=== PATIENT | female | born 1990 | race Caucasian/White ===

== ENCOUNTER 2020-06-07 21:47 | Observation (INO) ==
--- OUTSIDE RECORDS SUMMARY | 2020-06-07 21:50 | External Medical Summary | Continuity of Care Document ---
:1990 Author Name Apollo Martínez Address Unavailable Unavailable , Care Team Providers Name Role Phone OB [email or web address] Unavailable [email or web address] [email or web address], NO Unavailable Unavailable Problems Active medical history not documented Allergies and Adverse Reactions Allergy history not documented Medications Medications not documented Procedures Procedures not documented Immunizations Immunizations not documented Plan of Treatment Planned Observations Planned Goals not documented Results No Known Results Results not documented Encounters Appointment; OB SC1, Nursing Station 08-Nov-2017 8:45 Encounter Diagnosis: Problem not documented
--- OUTSIDE RECORDS SUMMARY | 2020-06-07 21:50 | External Medical Summary | Continuity of Care Document ---
:1990 Author Name Apollo Martínez Address Unavailable Unavailable , Care Team Providers Name Role Phone OB [email or web address] Unavailable [email or web address] PCP, NO Unavailable Unavailable Problems Active medical [...]
[2020-06-07] MEDS ORDERED: ACETAMINOPHEN 1,000 MG/100 ML VIAL IV STA (22:26)
[2020-06-07] MEDS ORDERED: ONDANSETRON INJ 2 MG/ML 2 ML VIAL IV STA (22:26)
[2020-06-07] MEDS ORDERED: MoRPHine SULFATE 10 MG/ML CARP/VIAL IV STA (22:26)
[2020-06-07] MEDS ORDERED: SODIUM CHLORIDE 0.9% 1000ML 1,000 ML IV SCH (22:30)
[2020-06-07 23:27] LABS: Basophils # (auto) 0.03 K/uL (0-0.2); Basophils % (auto) 0.2 %; Eosinophils # (auto) 0.18 K/uL (0-0.5); Eosinophils % (auto) 1.3 %; Hematocrit (blood only) 43.6 % (37-47); Hemoglobin 14.8 g/dL (12.0-16.0); Immature Granulocytes # (auto) 0.03 K/uL (0.00-0.02); Immature Granulocytes % (auto) 0.2 %; Lymphocytes # (auto) 2.01 K/uL (1.2-3.4); Mean Corpuscular Hemoglobin 27.7 pg (25-34); Mean Corpuscular Hgb Conc 33.9 g/dL (32-36); Mean Corpuscular Volume 81.5 fL (80-100); Mean Platelet Volume 11.6 fL (7.4-10.4); Monocytes # (auto) 1.04 K/uL (0.11-0.59); Monocytes % (auto) 7.8 %; Neutrophils % (auto) 75.5 %; Platelet Count 298 K/uL (130-400); RDW Coefficient of Variation 12.9 % (11.5-14.5); RDW Standard Deviation 38.4 fL (36.4-46.3); Red Blood Count 5.35 M/uL (4.2-5.4); White Blood Count 13.39 K/uL (4.8-10.8)
[2020-06-07 23:41] LABS: Appearance Urine Cloudy (Clear); Bacteria Urine Automated Negative (Negative); Bilirubin Urine Negative (Negative); Blood Urine Negative (Negative); Color Urine Yellow; Epithelial Cell Urine Auto >30 /lpf (0-5); Glucose Urine UA Negative (Negative); Ketones Urine Negative (Negative); Leukocyte Esterase Urine Negative (Negative); Nitrite Urine Negative (Negative); Protein Urine Negative (Negative); RBC Urine Automated 0-4 /hpf (0-4); Urobilinogen Urine Negative (Negative)
[2020-06-07 23:55] LABS: Albumin Level 4.1 gm/dl (3.4-5.0); BUN Creatinine Ratio 10.1 (10-20); Calcium 9.8 mg/dl (8.5-10.1); Creatinine Clr Calc Pharmacy 115.8 ml/min; Est GFR (African American) 118.9; Est GFR (Non-African American) 102.6; Potassium 3.7 mmol/L (3.5-5.1)
[2020-06-07 23:58] LABS: Albumin Globulin Ratio 1.1 (0.9-2); Bilirubin,Total 0.4 mg/dl (0.2-1); Globulin 3.8 gm/dl (2.5-4.0); Total Protein 7.9 gm/dl (6.4-8.2)
--- NOTE | 2020-06-08 02:04 | History & Physical Report ---
Date of Service June 08, 2020 Assessment & Plan (1) Appendicitis: This patient by history, physical examination, laboratory data and CT scan findings of which I reviewed the report as well as the images is consistent with acute appendicitis. We discussed the options of laparoscopic appendectomy versus antibiotics. She has chosen appendectomy. I explained the laparoscopic procedure and the possible need to convert to an open procedure. I explained the possible complications associated with the procedures and answered her questions. She signed a consent form. Present on Admission?: Yes History of Present Illness Chief Complaint: Right lower quadrant abdominal pain Primary Care Provider: Rafa Jackson Is a 29-year-old female who presented to the emergency room with a complaint of abdominal pain. It began 12 hours ago as a crampy discomfort throughout her abdomen better as the day progressed the severity increased and it migrated to the right lower quadrant. The pain is described as sharp. It does not radiate around to the back. Was associated with nausea and vomiting but no hematemesis. She developed a fever with the maximum temperature at home of 100.7. She has no dysuria or hematuria. She has not had any change in her bowel habits. She denies diarrhea constipation. She has not had any melena or hematochezia. Allergies Allergy/AdvReac Type Severity Reaction Status Date / Time No Known Allergies Allergy Unverified 10/02/18 13:31 Past Med/Surg History Medical History (Updated 06/08/20 @ 02:03 by Bharath Lindsay MD) Asthma Surgical History (Updated 06/08/20 @ 02:00 by Bharath Lindsay MD) H/O abdominoplasty Hx of breast reduction, elective [place] teeth extracted Social History Smoking Status: Current every day smoker Tobacco Type: Cigarettes Hx Alcohol Use: Yes Preferred Language: Syriac marital status: Current Living Situation: Spouse and Family current occupational status: employed Feels Safe at Home: Yes Review of Systems Review of Systems: All systems reviewed & are unremarkable except as noted in HPI & below Physical Exam Constitutional: no acute distress Respiratory: normal respiratory effort, lungs clear to auscultation Cardiovascular: Rate/Rhythm: regular rate and regular rhythm Gastrointestinal (Abdomen): Inspection/Auscultation: normal bowel sounds; abdomen not distended Percussion/Palpation: + abdomen tender (RLQ tenderness to moderate palpation) and abdomen soft Skin: no rashes, warm and dry Lymphatic: no cervical lymphadenopathy Results & Data Results & Data ([facility]) Vital Signs (Past 12 Hours) Vital Signs Temp Pulse Pulse Resp BP BP Pulse Ox 06/08/20 00:29 100 06/08/20 00:28 92 H 18 123/78 100 06/07/20 21:49 37.9 C H 122 H 20 132/79 97 Laboratory Results 06/07/20 06/07/20 06/07/20 Range/Units 23:20 23:20 22:55 WBC (4.8-10.8) K/uL RBC (4.2-5.4) M/uL Hgb (12.0-16.0) g/dL Hct (37-47) % MCV (80-100) fL MCH (25-34) pg MCHC (32-36) g/dL RDW Std Deviation (36.4-46.3) fL RDW Coeff of Ethan (11.5-14.5) % Plt Count (130-400) K/uL MPV (7.4-10.4) fL Immature Gran % (Auto) % Neut % (Auto) % Lymph % (Auto) % [place] % (Auto) % Eos % (Auto) % Baso % (Auto) % Neut # (Auto) (1.4-6.5) K/uL Lymph # (Auto) (1.2-3.4) K/uL [place] # (Auto) (0.11-0.59) K/uL Eos # (Auto) (0-0.5) K/uL Baso # (Auto) (0-0.2) K/uL Immature Gran # (Auto) (0.00-0.02) K/uL Sodium (136-145) mmol/L Potassium (3.5-5.1) mmol/L Chloride (98-107) mmol/L Carbon Dioxide (21-32) mmol/L Anion Gap (3-11) BUN (7-18) mg/dl Creatinine (0.6-1.2) mg/dl Est Cr Clr Drug Dosing ml/min Est GFR ( Amer) Est GFR (Non-Af Amer) BUN/Creatinine Ratio (10-20) Glucose (70-99) mg/dl Lactate 0.9 (0.4-2.0) mmol/L Calcium (8.5-10.1) mg/dl Total Bilirubin (0.2-1) mg/dl AST (15-37) U/L ALT (12-78) U/L Alkaline Phosphatase (45-117) U/L Total Protein (6.4-8.2) gm/dl Albumin (3.4-5.0) gm/dl Globulin (2.5-4.0) gm/dl Albumin/Globulin Ratio (0.9-2) Lipase (73-393) U/L Urine Color Yellow Urine Appearance Cloudy A (Clear) Urine pH 8.0 H (4.5-7.5) Ur Specific [place] 1.020 (1.000-1.030) Urine Protein Negative (Negative) Urine Glucose (UA) Negative (Negative) Urine Ketones Negative (Negative) Urine Blood Negative (Negative) Urine Nitrite Negative (Negative) Urine Bilirubin Negative (Negative) Urine Urobilinogen Negative (Negative) Ur Leukocyte Esterase Negative (Negative) Urine WBC (Auto) 1-5 (0-5) /hpf Urine RBC (Auto) 0-4 (0-4) /hpf U Hyaline Cast (Auto) 1-5 (0-5) /lpf U Epithel Cells (Auto) >30 H (0-5) /lpf Urine Bacteria (Auto) Negative (Negative) POC Ur Test NEG (NEG) 06/07/20 06/07/20 Range/Units 22:55 22:55 WBC 13.39 H (4.8-10.8) K/uL RBC 5.35 (4.2-5.4) M/uL Hgb 14.8 (12.0-16.0) g/dL Hct 43.6 (37-47) % MCV 81.5 (80-100) fL MCH 27.7 (25-34) pg MCHC 33.9 (32-36) g/dL RDW Std Deviation 38.4 (36.4-46.3) fL RDW Coeff of Ethan 12.9 (11.5-14.5) % Plt Count 298 (130-400) K/uL MPV 11.6 H (7.4-10.4) fL Immature Gran % (Auto) 0.2 % Neut % (Auto) 75.5 % Lymph % (Auto) 15.0 % [place] % (Auto) 7.8 % Eos % (Auto) 1.3 % Baso % (Auto) 0.2 % Neut # (Auto) 10.10 H (1.4-6.5) K/uL Lymph # (Auto) 2.01 (1.2-3.4) K/uL [place] # (Auto) 1.04 H (0.11-0.59) K/uL Eos # (Auto) 0.18 (0-0.5) K/uL Baso # (Auto) 0.03 (0-0.2) K/uL Immature Gran # (Auto) 0.03 H (0.00-0.02) K/uL Sodium 139 (136-145) mmol/L Potassium 3.7 (3.5-5.1) mmol/L Chloride 107 (98-107) mmol/L Carbon Dioxide 25 (21-32) mmol/L Anion Gap 7.0 (3-11) BUN 8 (7-18) mg/dl Creatinine 0.79 (0.6-1.2) mg/dl Est Cr Clr Drug Dosing 115.8 ml/min Est GFR ( Amer) 118.9 Est GFR (Non-Af Amer) 102.6 BUN/Creatinine Ratio 10.1 (10-20) Glucose 95 (70-99) mg/dl Lactate (0.4-2.0) mmol/L Calcium 9.8 (8.5-10.1) mg/dl Total Bilirubin 0.4 (0.2-1) mg/dl AST 25 (15-37) U/L ALT 29 (12-78) U/L Alkaline Phosphatase 94 (45-117) U/L Total Protein 7.9 (6.4-8.2) gm/dl Albumin 4.1 (3.4-5.0) gm/dl Globulin 3.8 (2.5-4.0) gm/dl Albumin/Globulin Ratio 1.1 (0.9-2) Lipase 99 (73-393) U/L Urine Color Urine Appearance (Clear) Urine pH (4.5-7.5) Ur Specific [place] (1.000-1.030) Urine Protein (Negative) Urine Glucose (UA) (Negative) Urine Ketones (Negative) Urine Blood (Negative) Urine Nitrite (Negative) Urine Bilirubin (Negative) Urine Urobilinogen (Negative) Ur Leukocyte Esterase (Negative) Urine WBC (Auto) (0-5) /hpf Urine RBC (Auto) (0-4) /hpf U Hyaline Cast (Auto) (0-5) /lpf U Epithel Cells (Auto) (0-5) /lpf Urine Bacteria (Auto) (Negative) POC Ur Test (NEG) Diagnostic Findings CT of the abdomen and pelvis without contrast shows a mildly prominent appendix measuring 8 mm in diameter with mild adjacent fat stranding compatible with early acute appendicitis. There is no appendiceal abscess. There is no renal or ureteral calculus. There is no hydronephrosis. There is a 2.4 cm left adnexal hypodensity which may be an ovarian cyst.
[2020-06-08] MEDS ORDERED: MIDAZOLAM HCL 1 MG/ML 2ML VIAL ONE (02:55)
[2020-06-08] MEDS ORDERED: ROCURONIUM BROMIDE 10 MG/ML 5 ML VIAL IV ONE (02:57)
[2020-06-08] MEDS ORDERED: NEOSTIGMINE METHYLSULFATE 5 MG/5 ML SYR ONE (02:57)
[2020-06-08] MEDS ORDERED: ONDANSETRON INJ 2 MG/ML 2 ML VIAL ONE (02:57)
[2020-06-08] MEDS ORDERED: PROPOFOL IV EMULSION 10 MG/ML 20 ML VIAL IV ONE (02:57)
[2020-06-08] MEDS ORDERED: LIDOCAINE HCL 2% 2 ML VIAL/AMP(20MG/ML) INFIL ONE (02:57)
[2020-06-08] MEDS ORDERED: fentaNYL citrate 100 MCG/2 ML VIAL ONE (02:57)
[2020-06-08] MEDS ORDERED: GLYCOPYRROLATE 0.2 MG/ML VIAL ONE (02:58)
--- NOTE | 2020-06-08 03:19 | Anesthesiology Consultation ---
Date of Service June 08, 2020 Assessment & Plan Chart Review Chart Review: Acceptable Risk for Surgery Consults Requested none History Surgery Operation Date: 06/08/20 03:00 Proposed Procedures p Laparoscopic Appendectomy - Bharath Lindsay MD Height/Weight Height: 5 ft 5 in Weight: 85.9 kg Allergies Allergy/AdvReac Type Severity Reaction Status Date / Time No Known Allergies Allergy Unverified 10/02/18 13:31 NPO Date Last Intake of Fluids: 06/07/20 Time Last Intake of Fluids: 15:30 Date Last Intake of Solids: 06/07/20 Time Last Intake of Solids: 15:30 Past Medical History Medical History Asthma Past Surgical History Surgical History H/O abdominoplasty Hx of breast reduction, elective [place] teeth extracted Social History Smoking Status: Current every day smoker Hx Alcohol Use: Yes Physical Exam Vital Signs Last Vital Signs Temp 37.9 C H 06/07/20 21:49 Pulse 73 06/08/20 02:37 Resp 18 06/08/20 02:37 BP 104/54 L 06/08/20 02:37 Pulse Ox 99 06/08/20 02:37 Testing Laboratory Results 06/07/20 22:55 06/07/20 22:55 Urine Color Yellow 06/07/20 23:20 Urine Appearance Cloudy (Clear) A 06/07/20 23:20 Urine pH 8.0 (4.5-7.5) H 06/07/20 23:20 Ur Specific [place] 1.020 (1.000-1.030) 06/07/20 23:20 Urine Protein Negative (Negative) 06/07/20 23:20 Urine Glucose (UA) Negative (Negative) 06/07/20 23:20 Urine Ketones Negative (Negative) 06/07/20 23:20 Urine Nitrite Negative (Negative) 06/07/20 23:20 Ur Leukocyte Esterase Negative (Negative) 06/07/20 23:20 Urine WBC (Auto) 1-5 /hpf (0-5) 06/07/20 23:20 Urine RBC (Auto) 0-4 /hpf (0-4) 06/07/20 23:20 U Hyaline Cast (Auto) 1-5 /lpf (0-5) 06/07/20 23:20 U Epithel Cells (Auto) >30 /lpf (0-5) H 06/07/20 23:20 Urine Bacteria (Auto) Negative (Negative) 06/07/20 23:20 06/07/20 23:20 POC Ur Test NEG
[2020-06-08] MEDS ORDERED: ATROPINE SULFATE 0.1 MG/ML 10ML SYR IV PRN (03:20)
[2020-06-08] MEDS ORDERED: METOCLOPRAMIDE HCL INJ 5 MG/ML 2 ML VIAL IV PRN (03:20)
[2020-06-08] MEDS ORDERED: ONDANSETRON INJ 2 MG/ML 2 ML VIAL IV PRN ×2 (03:20→05:58)
[2020-06-08] MEDS ORDERED: HYDROmorphone INJ 2 MG/ML SYR/VIAL IV PRN (03:20)
[2020-06-08] MEDS ORDERED: PROMETHAZINE HCL 12.5 MG in SODIUM CHLORIDE 0.9% 50 ML IV PRN (03:20)
[2020-06-08] MEDS ORDERED: ePHEDrine sulfate 50 MG/ML AMP IV PRN (03:20)
--- NOTE | 2020-06-08 03:39 | Emergency Department Note ---
History of Present Illness General Chief complaint: Abdominal Pain Stated complaint: ABD PAIN, FEVER, VOMITING History of Present Illness Maximum Pain Intensity: 5 This is a 29-year-old female presenting to the emergency department for evaluation of right lower quadrant abdominal pain for the past 1 day. The patient does not report any injury or trauma. Last menstrual period was 2 weeks ago, and she denies chance of as her had a vasectomy. The patient became worried tonight as she developed a fever and some nausea without vomiting. She does not report chest pain, chest tightness, shortness of breath. No upper abdominal pain. She has been without an appetite for most of the day, eating only 2 bites from a grilled cheese sandwich and a small amount of soup. The patient reports past history of abdominoplasty and breast reduction, and seems to have done well with anesthesia. The patient has not taken anything [id number] for her symptoms, and rates her discomfort a 5/10. Allergies Allergy/AdvReac Type Severity Reaction Status Date / Time No Known Allergies Allergy Unverified 10/02/18 13:31 Past Med/Surg History Medical History Asthma Surgical History H/O abdominoplasty Hx of breast reduction, elective [place] teeth extracted Social History Smoking Status: Current every day smoker Tobacco Type: Cigarettes Hx Alcohol Use: Yes Preferred Language: Icelandic marital status: Current Living Situation: Spouse and Family current occupational status: employed Feels Safe at Home: Yes Review of Systems A total of 10 systems reviewed and were otherwise negative Physical Exam Vital Signs Vital Signs - 24 hr 06/07/20 21:49 06/08/20 00:28 06/08/20 00:29 Temperature 37.9 C H Temperature Source Oral Pulse Rate 122 H Pulse Rate [Finger] 92 H Respiratory Rate 20 18 Respiratory Effort / Characteristics Non-Labored Spontaneous Non-Labored Spontaneous Respiratory Depth Normal Normal Blood Pressure 132/79 Blood Pressure [Right Arm] 123/78 Blood Pressure Mean 96 Blood Pressure Mean [Right Arm] 93 Pulse Oximetry 97 100 100 Oxygen Delivery Method Room Air Room Air Room Air Sepsis New/Unexplained Change in Mental Status N/A Sepsis Action Taken by Nursing No Action Required 06/08/20 02:37 Temperature Temperature Source Pulse Rate Pulse Rate [Finger] 73 Respiratory Rate 18 Respiratory Effort / Characteristics Non-Labored Spontaneous Respiratory Depth Normal Blood Pressure Blood Pressure [Right Arm] 104/54 L Blood Pressure Mean Blood Pressure Mean [Right Arm] 70 Pulse Oximetry 99 Oxygen Delivery Method Room Air Sepsis New/Unexplained Change in Mental Status Sepsis Action Taken by Nursing VITALS: Vitals are noted on the nurse's note and reviewed by myself. Vital signs with tachycardia and low-grade fever GENERAL: Well-developed, well-nourished, white female, who is in no acute distress and resting comfortably. Patient is cooperative with the examination. HEAD: Normocephalic atraumatic. NECK: Supple without nuchal rigidity. No lymphadenopathy. No thyromegaly. Cervical spine is nontender. HEART: Tachycardic rate with regular rhythm LUNGS: Clear to auscultation bilaterally without wheezes, rales or rhonchi. No retractions or accessory muscle use. ABDOMEN: Positive normal bowel sounds x 4. Soft with right lower quadrant tenderness on palpation. No rebound or guarding. MUSCULOSKELETAL: No muscle atrophy, erythema, or edema noted. Full range of motion in all extremities. NEURO: Patient was alert and oriented to person place and time. CN II through XII grossly intact. Course Administered Medications Discontinued Medications Sodium Chloride (Nss 1000ml) 1,000 mls @ 999 mls/hr IV .Q1H1M GABRIEL Stop: 06/07/20 23:30 Last Infusion: 06/08/20 00:10 Dose: 0 mls/hr Documented by: [id number] Admin: 06/07/20 23:13 Dose: 999 mls/hr Documented by: [id number] Acetaminophen (Ofirmev) 1,000 mg in 100 mls @ 400 mls/hr IV NOW STA Stop: 06/07/20 22:40 Last Infusion: 06/07/20 23:30 Dose: 0 mls/hr Documented by: [id number] Admin: 06/07/20 23:13 Dose: 400 mls/hr Documented by: [id number] Morphine Sulfate (Morphine Sulfate 10 Mg/Ml Carp/Vial) 8 mg IV NOW STA Stop: 06/07/20 22:27 Last Admin: 06/07/20 23:13 Dose: 8 mg Documented by: [id number] Ondansetron HCl (Ondansetron Inj 2 Mg/Ml 2 Ml Vial) 4 mg IV NOW STA Stop: 06/07/20 22:27 Last Admin: 06/07/20 23:13 Dose: 4 mg Documented by: [id number] Medical Decision Making Differential Diagnosis Differential diagnosis: Etiologies such as biliary colic, cholecystitis, hepatitis, pancreatitis, cardiac disease, pancreatitis, gastritis, peptic ulcer disease, appendicitis, cystitis, diverticulitis, mesenteric ischemia, inflammatory bowel disease, ileus, bowel obstruction, testicular/adnexal torsion, aortic pathology, shingles, as well as others were considered Laboratory Data Result diagrams: 06/07/20 22:55 06/07/20 22:55 Lab Results 06/07/20 06/07/20 06/07/20 Range/Units 22:55 22:55 22:55 WBC 13.39 H (4.8-10.8) K/uL RBC 5.35 (4.2-5.4) M/uL Hgb 14.8 (12.0-16.0) g/dL Hct 43.6 (37-47) % MCV 81.5 (80-100) fL MCH 27.7 (25-34) pg MCHC 33.9 (32-36) g/dL RDW Std Deviation 38.4 (36.4-46.3) fL RDW Coeff of Ethan 12.9 (11.5-14.5) % Plt Count 298 (130-400) K/uL MPV 11.6 H (7.4-10.4) fL Immature Gran % (Auto) 0.2 % Neut % (Auto) 75.5 % Lymph % (Auto) 15.0 % [place] % (Auto) 7.8 % Eos % (Auto) 1.3 % Baso % (Auto) 0.2 % Neut # (Auto) 10.10 H (1.4-6.5) K/uL Lymph # (Auto) 2.01 (1.2-3.4) K/uL [place] # (Auto) 1.04 H (0.11-0.59) K/uL Eos # (Auto) 0.18 (0-0.5) K/uL Baso # (Auto) 0.03 (0-0.2) K/uL Immature Gran # (Auto) 0.03 H (0.00-0.02) K/uL Sodium 139 (136-145) mmol/L Potassium 3.7 (3.5-5.1) mmol/L Chloride 107 (98-107) mmol/L Carbon Dioxide 25 (21-32) mmol/L Anion Gap 7.0 (3-11) BUN 8 (7-18) mg/dl Creatinine 0.79 (0.6-1.2) mg/dl Est Cr Clr Drug Dosing 115.8 ml/min Est GFR ( Amer) 118.9 Est GFR (Non-Af Amer) 102.6 BUN/Creatinine Ratio 10.1 (10-20) Glucose 95 (70-99) mg/dl Lactate 0.9 (0.4-2.0) mmol/L Calcium 9.8 (8.5-10.1) mg/dl Total Bilirubin 0.4 (0.2-1) mg/dl AST 25 (15-37) U/L ALT 29 (12-78) U/L Alkaline Phosphatase 94 (45-117) U/L Total Protein 7.9 (6.4-8.2) gm/dl Albumin 4.1 (3.4-5.0) gm/dl Globulin 3.8 (2.5-4.0) gm/dl Albumin/Globulin Ratio 1.1 (0.9-2) Lipase 99 (73-393) U/L Urine Color Urine Appearance (Clear) Urine pH (4.5-7.5) Ur Specific [place] (1.000-1.030) Urine Protein (Negative) Urine Glucose (UA) (Negative) Urine Ketones (Negative) Urine Blood (Negative) Urine Nitrite (Negative) Urine Bilirubin (Negative) Urine Urobilinogen (Negative) Ur Leukocyte Esterase (Negative) Urine WBC (Auto) (0-5) /hpf Urine RBC (Auto) (0-4) /hpf U Hyaline Cast (Auto) (0-5) /lpf U Epithel Cells (Auto) (0-5) /lpf Urine Bacteria (Auto) (Negative) POC Ur Test (NEG) COVID-19 Eval Order 06/07/20 06/07/20 06/08/20 Range/Units 23:20 23:20 03:00 WBC (4.8-10.8) K/uL RBC (4.2-5.4) M/uL Hgb (12.0-16.0) g/dL Hct (37-47) % MCV (80-100) fL MCH (25-34) pg MCHC (32-36) g/dL RDW Std Deviation (36.4-46.3) fL RDW Coeff of Ethan (11.5-14.5) % Plt Count (130-400) K/uL MPV (7.4-10.4) fL Immature Gran % (Auto) % Neut % (Auto) % Lymph % (Auto) % [place] % (Auto) % Eos % (Auto) % Baso % (Auto) % Neut # (Auto) (1.4-6.5) K/uL Lymph # (Auto) (1.2-3.4) K/uL [place] # (Auto) (0.11-0.59) K/uL Eos # (Auto) (0-0.5) K/uL Baso # (Auto) (0-0.2) K/uL Immature Gran # (Auto) (0.00-0.02) K/uL Sodium (136-145) mmol/L Potassium (3.5-5.1) mmol/L Chloride (98-107) mmol/L Carbon Dioxide (21-32) mmol/L Anion Gap (3-11) BUN (7-18) mg/dl Creatinine (0.6-1.2) mg/dl Est Cr Clr Drug Dosing ml/min Est GFR ( Amer) Est GFR (Non-Af Amer) BUN/Creatinine Ratio (10-20) Glucose (70-99) mg/dl Lactate (0.4-2.0) mmol/L Calcium (8.5-10.1) mg/dl Total Bilirubin (0.2-1) mg/dl AST (15-37) U/L ALT (12-78) U/L Alkaline Phosphatase (45-117) U/L Total Protein (6.4-8.2) gm/dl Albumin (3.4-5.0) gm/dl Globulin (2.5-4.0) gm/dl Albumin/Globulin Ratio (0.9-2) Lipase (73-393) U/L Urine Color Yellow Urine Appearance Cloudy A (Clear) Urine pH 8.0 H (4.5-7.5) Ur Specific [place] 1.020 (1.000-1.030) Urine Protein Negative (Negative) Urine Glucose (UA) Negative (Negative) Urine Ketones Negative (Negative) Urine Blood Negative (Negative) Urine Nitrite Negative (Negative) Urine Bilirubin Negative (Negative) Urine Urobilinogen Negative (Negative) Ur Leukocyte Esterase Negative (Negative) Urine WBC (Auto) 1-5 (0-5) /hpf Urine RBC (Auto) 0-4 (0-4) /hpf U Hyaline Cast (Auto) 1-5 (0-5) /lpf U Epithel Cells (Auto) >30 H (0-5) /lpf Urine Bacteria (Auto) Negative (Negative) POC Ur Test NEG (NEG) COVID-19 Eval Order [facility] Imaging Data Radiologist's Impression: Preliminary Findings Only See Final Report For Complete Findings CT ABDOMEN & PELVIS Without Contrast: Mildly prominent appendix measuring 8 mm in diameter with mild adjacent stranding, compatible with early acute appendicitis in the appropriate clinical setting. No appendiceal abscess. No renal or ureteral calculus. No hydronephrosis. 2.4 cm left adnexal hypodensity which may be an ovarian cyst. MDM Narrative Physical exam and history were performed. Nursing notes, EMR, and Medication List were personally reviewed. Patient appears to have right lower quadrant abdominal pain bringing her to the ER. IV access was established and labs were obtained. She was hydrated with normal saline and given IV morphine, IV Tylenol, and IV Zofran. She was sent to CT scan for further evaluation of her symptoms. The patient's blood work is as above and was reviewed. She does have an elevat ed white blood cell count of 13. She does not have a significant anemia or gross electrolyte imbalance. Lipase and transaminases are not diagnostic. Urine is without evidence of infection and she is not . CT scan was reviewed by myself and radiology and does appear consistent with acute appendicitis. The case was discussed with the on-call surgeon, Dr. Lindsay, who agreed to evaluate the patient here in the ER. Please see Dr. Lindsay's dictation for further patient course, plan, and disposition. The chart was completed utilizing [email or web address] Voice Recognition Software. Gr ammatical errors, random word insertions, pronoun errors, and incomplete sentences are an occasional consequence of this system due to software limitations, ambient noise, and hardware issues. Any formal questions or concerns about the content, text, or information contained within the body of this dictation should be directly addressed to the provider for clarification. . Impression & Plan Appendicitis Discharge Plan Visit Data Chief Complaint: Abdominal Pain Stated Complaint: ABD PAIN, FEVER, VOMITING ED Provider: Yashira Wood ED Midlevel Provider: Chris Kelsey Discharge Problem: Appendicitis Patient Disposition: Still a Patient Discharge Instructions Interventions: ED Discharge Assessment Last Done: 06/08/20 02:39
[2020-06-08] MEDS ORDERED: BUPIVACAINE 0.5 % 5 MG/1 ML MPF 30ML VIAL ONE (04:02)
[2020-06-08] MEDS ORDERED: HEPARIN (PORCINE) 1000 UNIT/ML 10 ML (CATH LAB USE ONLY) ONE (04:02)
[2020-06-08] MEDS ORDERED: DEXAMETHASONE SOD INJ 4 MG/ML VIAL ONE (04:50)
--- NOTE | 2020-06-08 05:01 | Post Operative Brief Note ---
Immediate Post Op Note v1 Date of Surgery June 08, 2020 Pre & Post Diagnosis Operation Date: 06/08/20 03:00 Pre-Op Diagnosis: acute appendicitis Post-Op Diagnosis: acute appendicitis I identified the patient and participated in the time-out.: Yes Procedure Operation Date: 06/08/20 03:00 Actual Procedures p Laparoscopic Appendectomy(Not Applicable) - Bharath Lindsay MD Surgeon Bharath Lindsay MD Cotton Ginner None Estimated Blood Loss 4 Findings Consistent with Post-Op Diagnosis Drains Wang Catheter
[2020-06-08] MEDS: fentaNYL citrate 100 MCG/2 ML VIAL IV PRN ×2 (05:11→05:19)
[2020-06-08] MEDS ORDERED: MoRPHine SULFATE 2 MG/ML CARP IV PRN (05:59)
[2020-06-08] MEDS: SODIUM CHLORIDE 0.9% 1000ML 1,000 ML IV SCH ×2 (06:36→20:22)
--- NOTE | 2020-06-08 06:36 | Anesthesiology Progress Note ---
Date of Service June 08, 2020 Anesthesia Post Procedure Vital Signs Vital Signs: Temp Pulse Pulse Resp BP BP Pulse Ox 06/08/20 06:15 36.7 C 68 20 135/98 96 06/08/20 05:45 36.2 C L 65 18 132/84 100 06/08/20 05:35 36.5 C 62 16 107/81 96 06/08/20 05:31 75 18 06/08/20 05:29 74 20 124/68 98 06/08/20 05:24 77 13 113/78 99 06/08/20 05:21 72 15 06/08/20 05:20 76 20 116/70 06/08/20 05:14 68 15 101/73 06/08/20 05:10 74 14 96 06/08/20 05:09 36.5 C 79 18 117/69 100 06/08/20 05:07 89 19 91 06/08/20 02:37 73 18 104/54 L 99 06/08/20 00:29 100 06/08/20 00:28 92 H 18 123/78 100 06/07/20 21:49 37.9 C H 122 H 20 132/79 97 Pain Intensity Right Abdomen: Pain Intensity: 6 Transfer of Care Handoff Completed per policy Notes Mental Status: alert / awake / arousable and participated in evaluation Patient Amnestic to Procedure: Yes Nausea / Vomiting: adequately controlled Pain: adequately controlled Airway Patency, RR, SpO2: stable & adequate BP & HR: stable & adequate Hydration State: stable & adequate Anesthetic Complications: no major complications apparent
--- NOTE | 2020-06-08 07:56 | CT Scan Report ---
ABDOMEN AND PELVIS CT WITHOUT CONTRAST CT DOSE: 506.17 mGy.cm HISTORY: Right lower quadrant pain. Fever. TECHNIQUE: Multiaxial CT images of the abdomen and pelvis were performed without contrast. A dose lo wering technique was utilized adhering to the principles of ALARA. COMPARISON STUDY: None. FINDINGS: The lung bases are clear. No pneumoperitoneum. No pneumatosis. No fractures within the visu alized osseous structures. The unenhanced liver, gallbladder, spleen, adrenal glands, pancreas, and k idneys are unremarkable. No retroperitoneal lymphadenopathy. Normal caliber abdominal aorta. No pelvi c lymphadenopathy. The bladder, uterus, and right ovary are within normal limits. There is a 1.9 cm l eft ovarian hypodense lesion which favors a cyst. No evidence for bowel obstruction. There are subopt imal evaluation for bowel pathology due to the lack of intravenous and oral contrast. Mild periappend iceal inflammatory change seen within the right lower quadrant. The appendix is borderline dilated me asuring up to 7 mm. Findings likely represent an early acute appendicitis. No perforation or abscess. IMPRESSION: Mild periappendiceal inflammatory change with a borderline dilated appendix measuring 7 mm. Findings likely represent an early acute appendicitis in the appropriate clinical setting. ACT 112: Negative or not required by law. Electronically signed by: Hank Baird M.D. 06/08/2020 7:55 AM
--- NOTE | 2020-06-08 09:50 | Operative Report (OR) ---
DATE OF OPERATION: 06/08/2020 PREOPERATIVE DIAGNOSIS: Acute appendicitis. POSTOPERATIVE DIAGNOSIS: Acute appendicitis. PROCEDURE: Laparoscopic appendectomy. SURGEON: Bharath Lindsay MD. FINDINGS: The appendix in its distal half was dilated, hyperemic and firm. The proximal half appeared normal. The base of the appendix was normal as was the cecum at the base of the appendix. The visible bowel appeared normal. There was no evidence of perforation or abscess. TECHNIQUE: The patient was given a general anesthetic and the area was prepped and draped in the usual sterile fashion. A site above the umbilicus was chosen and the skin and subcutaneous tissue were anesthetized with 0.5% Marcaine. Skin incision was made, carried down through the subcutaneous tissue to the fascia, which was grasped with 2 Mickey clamps and incised between. The peritoneum was then identified, incised and introducer was placed bluntly. The abdomen was then insufflated to a pressure of 15 mmHg with carbon dioxide. A lower midline introducer site was chosen, the skin and subcutaneous tissue were anesthetized. Skin incision was made, and the introducer was placed under direct vision. Traction was placed superiorly on the cecum and the appendix was easily identified. The left lower quadrant introducer site was anesthetized. Similarly, a skin incision was made, and the introducer was placed under direct vision. Traction was placed towards the anterior abdominal wall on the appendix. There was some mild adhesion of the omentum that was taken down with ease. The base of the appendix was readily apparent. I was able to establish a plane between the appendix and the base of the appendix with ease. The mesoappendix was divided using the Endo-LIZBETH stapler. That allowed me to confirm that I was at the base of the appendix. The appendix was amputated using the Endo-LIZBETH stapler. There was a small amount of oozing from that staple line that was easily controlled with minimal cautery. The appendix was placed into an Endobag and brought out through the left lower quadrant introducer site. That introducer was replaced. The right lower quadrant was irrigated and the irrigation was removed. The staple lines were inspected and there was no bleeding. Gas was allowed to escape and the introducers were removed. The fascia of the supraumbilical and left lower quadrant introducer sites was closed with interrupted 0 Vicryl and skin of all the incisions was closed with 4-0 Monocryl in either an interrupted or running subcuticular fashion. The skin was further anesthetized with 0.5% Marcaine. The skin was cleansed, dried, benzoin placed, Steri-Strips applied. Estimated blood loss was 4 mL. Sponge, needle and instrument counts were correct prior to closure. The patient tolerated the surgical procedure without complication and was transferred to recovery. I attest to the content of the Intraoperative Record and any orders documented therein. Any exception s are noted below.
[2020-06-08] MEDS: oxyCODONE/ACETAMINOPHEN 5mg/325mg TAB PO PRN ×3 (09:56→20:21)
--- NOTE | 2020-06-09 06:45 | Surgery Progress Note ---
Date of Service June 09, 2020 Assessment & Plan (1) Appendicitis: Postoperative day #1 status post laparoscopic appendectomy Doing well Plan discharge to home Discussed postoperative activity restrictions Follow-up in 2 weeks Admission and Anticipated Discharge Date Admission Date: June 08, 2020 Subjective Postoperative day #1 status post laparoscopic appendectomy Small amount of pain Tolerated regular diet Ambulated Passing flatus Physical Exam Gastrointestinal (Abdomen): Inspection/Auscultation: abdomen not distended Percussion/Palpation: + abdomen tender (Mild incisional) and abdomen soft Results & Data ([facility]) Vital Signs (Past 12 Hours) Vital Signs Temp Pulse Resp BP Pulse Ox 06/09/20 03:47 36.7 C 78 16 102/65 98 06/08/20 23:00 36.8 C 76 14 105/67 94
--- NOTE | 2020-06-09 06:51 | Discharge Summary ---
Date of Service June 09, 2020 Admission HPI Per Admitting Provider Is a 29-year-old female who presented to the emergency room with a complaint of abdominal pain. It began 12 hours ago as a crampy discomfort throughout her abdomen better as the day progressed the severity increased and it migrated to the right lower quadrant. The pain is described as sharp. It does not radiate around to the back. Was associated with nausea and vomiting but no hematemesis. She developed a fever with the maximum temperature at home of 100.7. She has no dysuria or hematuria. She has not had any change in her bowel habits. She denies diarrhea constipation. She has not had any melena or hematochezia. Admission Exam Per Admitting Provider Constitutional: no acute distress Respiratory: normal respiratory effort, lungs clear to auscultation Cardiovascular: Rate/Rhythm: regular rate and regular rhythm Gastrointestinal (Abdomen): Inspection/Auscultation: normal bowel sounds; abdomen not distended Percussion/Palpation: + abdomen tender (RLQ tenderness to moderate palpation) and abdomen soft Skin: no rashes, warm and dry Lymphatic: no cervical lymphadenopathy Principal Diagnosis Appendicitis Discharge Exam Gastrointestinal (Abdomen) Inspection/Auscultation: + abdominal surgical incision (Clean, dry and intact); abdomen not distended Percussion/Palpation: + abdomen tender (Incisional only) and abdomen soft Discharge Data Allergies Allergy/AdvReac Type Severity Reaction Status Date / Time No Known Allergies Allergy Unverified 10/02/18 13:31 Consultations 06/08/20 00:30 Consult General Surgery Stat Procedures Performed Operation Date: 06/08/20 03:00 Actual Procedures p Laparoscopic Appendectomy(Not Applicable) - Bharath Lindsay MD Ordered Studies 06/07/20 22:26 CT abd pelvis wo con Urgent Hospital Course (1) Appendicitis: The patient was brought into the emergency room and was taken to the operating room where laparoscopic appendectomy was performed without complication. Findings at the time of the procedure revealed a firm hyperemic distal appendix with normal proximal appendix. There was very little bleeding. There was no perforation or abscess. Over the next 24 hours she was having mild amount of discomfort. She had no nausea or vomiting was tolerating a regular diet. She was passing flatus and ambulating. She was discharged on postoperative day #1 Total Time Total Time Spent Total Time Spent (In Minutes): 15 Discharge Plan Discharge Items Patient Disposition: Home - Self-Care Reason For Visit: APPENDICITIS Discharge Diagnosis: Same Activity: As commented below Non-emergency contact: Surgeon Call non-emergency contact if: your temperature is above 101.5, your wound has increased redness and your wound has increased drainage Follow-up/Referrals: Rafa Jackson M.D. [Primary Care Provider] - Diet: Regular Addtl Attending Provider Instructions: Post-Surgical ~Discharge Instructions Activity Recommendations: - lifting limitation: (10 pounds for 2 weeks), - exercise/sex/sports limit: (nonstrenuous for 2 weeks), - driving or machine use limit: (none for 1 week), - Shower/bathe limit: (may shower beginning tomorrow) Diet: - Resume previous diet SPECIAL CARE INSTRUCTIONS: - May shower in 24 hours. Let water run over area and pat dry. - Leave steri strips on for one week. - Call the surgeon's office with any questions or concerns - - (ex. temperature higher than 101 degrees F, excessive bleeding or pain). MEDICATIONS: - Resume previous medications unless instructed otherwise by your surgeon. - Ibuprofen 600 mg every 6 hours with food - Percocet 1 every 4 hours, as needed for pain FOLLOW UP VISIT: - If not already scheduled, please call the office to schedule a two week follow-up appointment. Office number Pending Studies at Discharge: Yes Studies:: Pathology Stand-Alone Forms: [facility] [employer], Smoking Cessation Medications and DC Order Prescriptions: New oxycodone-acetaminophen [Percocet] 5-325 mg Tablet 1 tab PO Q4H PRN (Reason: pain) Qty: 5 RF: 0 Discharge Orders: Discharge Order (Routine); Ordered 06/09/20 Ordered By: Bharath Lindsay Admission Data Admit Date/Time: 06/08/20 05:01 Attending Provider: Bharath Lindsay Admit Provider: Bharath Lindsay Primary Care Provider: Rafa Jackson Other Providers: Bharath Lindsay
[2020-06-09] MEDS: oxyCODONE/ACETAMINOPHEN 5mg/325mg TAB PO PRN ×2 (07:07→11:53)
[2020-06-09] MEDS: SODIUM CHLORIDE 0.9% 1000ML 1,000 ML IV SCH (12:21)
== END 2020-06-09 13:34 | disposition home or self-care (01) ==
LOC: ED 21:47 → OR 06-08 02:39 → 3W 06-08 02:39